=== PATIENT | female | born 1935 | race Caucasian/White ===

== ENCOUNTER → 2016-10-06 | Outpatient (CLI) | payer MEDICARE ==
[~2016-10-06] MED LIST: ASCO500T9 PO; CITA-50 PO; FAMO20TA40 PO; FERR-67 PO; LETR2.5T4 PO; LISI-126 PO
--- NOTE | 2016-10-06 19:15 | ECHOF ---
ECHOCARDIOGRAM DATE OF PROCEDURE October 06, 2016 This is a two-dimensional echo with spectral Doppler, color-flow and M-mode. It was obtained in a patient with breast cancer. Left atrium is mildly dilated. Left ventricular end-diastolic dimension is normal. Left ventricular wall thickness is increased. LV systolic function is normal with ejection fraction of 65%. Right atrium is normal. Right ventricle is normal. Aortic root dimension is normal. Mitral annulus is calcified. Mitral valve leaflets are sclerotic with no stenosis. Trace of mitral regurgitation is present. Aortic valve shows fibrocalcific changes with no stenosis or insufficiency. Tricuspid valve shows mild tricuspid regurgitation with normal estimated pulmonary artery systolic pressure of 30. Pulmonary valve shows mild pulmonary insufficiency. There is no pericardial effusion. IMPRESSION 1. Normal LV systolic function with ejection fraction of 65%. 2. Left ventricular hypertrophy. 3. Left atrial dilation. 4. Mitral annulus calcification with trace of mitral regurgitation. 5. Aortic sclerosis. 6. Mild tricuspid regurgitation with normal estimated pulmonary artery systolic pressure of 30. 7. Mild pulmonary insufficiency. MTDD
== END ==
LOC: IMA 13:21
PROVIDERS: ATTEND Internal Medicine Hematology & Oncology
DX: C50.112 Malignant neoplasm of central portion of left female breast (principal); I08.3 Combined rheumatic disorders of mitral, aortic and tricuspid valves
CPT/HCPCS: 93306